=== PATIENT | female | born 1955 | race Caucasian/White ===

== ENCOUNTER 2016-12-10 06:11 | Day surgery (SDC) | payer OTHER ==
[2016-12-04 13:15] LABS: HEMATOCRIT 41.6 % (36.0-48.0); HEMOGLOBIN 14.4 g/dL (12.0-16.0)
[~2016-12-10 06:11] MED LIST: BABY ASA; COQ; CRESTOR5 MG PO; ESTRACE VAGIN42.5 GM V; FLONASE NAS; GLUCCHONDR PO; LIPITOR20 PO; MOBIC15 MG PO; PHENTERMINE37.5 MG; SUPER B COMP PO; VIT C; [UNRECOGNIZED DRUG - OTHER]; [UNRECOGNIZED DRUG - OTHER]
== END 2016-12-10 23:59 | disposition home or self-care (01) ==
LOC: MSC 06:11
PROVIDERS: Surgery Plastic and Reconstructive Surgery
PROC: 0J0 Subcutaneous Tissue and Fascia, Alteration (ICD-10-PCS; principal; 2016-12-10 07:15)
PROC: 3E013GC Introduction of Other Therapeutic Substance into Subcutaneous Tissue, Percutaneous Approach (ICD-10-PCS; 2016-12-10 07:15)
DX: Z41.1 Encounter for cosmetic surgery (principal); M19.90 Unspecified osteoarthritis, unspecified site; Z98.890 Other specified postprocedural states; Z88.5 Allergy status to narcotic agent; Z91.040 Latex allergy status; Z79.899 Other long term (current) drug therapy
CPT/HCPCS: 85014; 85018; 93005; A9270-GY; J0690; J2250; J2270; J2405; J2710; J3010